=== PATIENT | female | born 1940 | race Caucasian/White ===

== ENCOUNTER 2019-02-22 02:30 | Inpatient (IN) | payer OTHER, MEDICAID ==
[2019-02-22] VITALS (7 sets, daily range): BP systolic 115–154
[~2019-02-22] VITALS: Ht 160 cm; Wt 39.5 kg
--- NOTE | 2019-02-22 02:31 | NUR ---
Patient to ER bed 6 to gown for evaluation. Side rails up.
--- NOTE | 2019-02-22 02:35 | NUR ---
Pt BIB BLS post fall. Pt reports to have fallen out of bed. C/O of head injury and L knee pain. Denies AOx3. Pt currently taking eloquis. Denies n/v/d or fever. No other complaints/injuries noted. Will cont. to monitor. Addendum: 02/22/19 at 0306 by [email or web address] Pt BIB BLS post fall. PT resides in [facility]. Pt reports to have fallen out of bed. C/O of head injury and L knee pain. Denies AOx3. Pt currently taking eloquis. Denies n/v/d or fever. No other complaints/injuries noted. Will cont. to monitor.
--- NOTE | 2019-02-22 02:36 | NUR ---
ER at bedside examining patient.
--- NOTE | 2019-02-22 03:01 | NUR ---
PT went to CT scan via Cynny, tolerated well. Will cont. to monitor.
[2019-02-22 03:12] LABS: BASOPHILS # (AUTO) 0.1 K/uL (0.0-0.2); EOSINOPHILS # (AUTO) 0.2 K/uL (0.0-0.4); EOSINOPHILS % (AUTO) 2.5 % (0.0-4.0); HEMATOCRIT 36.1 % (36-48); HEMOGLOBIN 12.1 g/dL (12.0-16.0); LYMPHOCYTES # (AUTO) 1.8 K/uL (1.0-5.5); LYMPHOCYTES % (AUTO) 22.8 % (20.5-51.5); MEAN CORPUSCULAR HEMOGLOBIN 27 pg (27-31); MEAN CORPUSCULAR HGB CONC 34 % (32-36); MEAN CORPUSCULAR VOLUME 80 fL (79.0-98.0); MONOCYTES # (AUTO) 0.6 K/uL (0.0-1.0); MONOCYTES % (AUTO) 8.2 % (1.7-9.3); NEUTROPHILS # (AUTO) 5.1 K/uL (1.8-7.7); NEUTROPHILS % (AUTO) 65.5 % (40.0-70.0); PLATELET COUNT (AUTO) 338 K/uL (130-430); RED BLOOD CELL COUNT(AUTO) 4.49 MIL/uL (4.2-6.2); RED CELL DISTRIBUTION WIDTH 17.3 % (9.0-15.0); WHITE BLOOD COUNT (AUTO) 7.8 K/uL (4.8-10.8)
[2019-02-22] MEDS ORDERED: NOR10 PO (03:18)
[2019-02-22] MEDS ORDERED: DIPH28.34 TP (03:18)
[2019-02-22] MEDS ORDERED: LOSA25TA3 PO (03:18)
[2019-02-22] MEDS ORDERED: POLY17PO4 PO (03:18)
[2019-02-22] MEDS ORDERED: MOM PO (03:18)
[2019-02-22] MEDS ORDERED: BISA10SU61 RC (03:18)
[2019-02-22] MEDS ORDERED: DOCU-144 PO (03:18)
[2019-02-22] MEDS ORDERED: ACET-2165 PO ×2 (03:18)
[2019-02-22] MEDS ORDERED: LIP40 PO (03:18)
[2019-02-22] MEDS ORDERED: FERR140T2 PO (03:18)
[2019-02-22] MEDS ORDERED: LEVO50TA8 PO (03:18)
[2019-02-22] MEDS ORDERED: OMEP40CA33 PO (03:18)
[2019-02-22] MEDS ORDERED: SENN8.6T19 PO (03:18)
[2019-02-22] MEDS ORDERED: FLEETMO RC (03:18)
[2019-02-22] MEDS ORDERED: IPRA3AMP9 INH (03:18)
[2019-02-22] MEDS ORDERED: ASPI-1155 PO (03:18)
[2019-02-22] MEDS ORDERED: GABA-531 PO (03:18)
[2019-02-22] MEDS ORDERED: ONDA4TAB5 PO (03:18)
[2019-02-22] MEDS ORDERED: ATRMDI INH (03:18)
[2019-02-22] MEDS ORDERED: APIX5TAB4 PO (03:18)
[2019-02-22] MEDS ORDERED: GABA-529 PO (03:18)
--- NOTE | 2019-02-22 03:19 | NUR ---
Medication reconciliation completed with information provided by [facility] [place]. Any prior medication reconciliation on file was reviewed and corrected.
--- NOTE | 2019-02-22 03:21 | NUR ---
Pt returned from CT scan.
[2019-02-22 03:25] LABS: CHLORIDE 101 mmol/L (98-107); SODIUM SERUM 133 mmol/L (136-145)
[2019-02-22 03:30] LABS: ALANINE AMINOTRANSFERASE 35 U/L (12-78); ALBUMIN 2.3 g/dL (3.4-4.8); ASPARTATE AMINOTRANSFERASE 34 U/L (10-37); PROTHROMBIN TIME 10.1 SECS (9.5-12.5)
[2019-02-22 03:35] LABS: ANION GAP 9 (5-15); CALCIUM 9.4 mg/dL (8.4-11.0); CREATININE 0.69 mg/dL (0.55-1.30); GLUCOSE 100 mg/dL (70-99); POTASSIUM 4.3 mmol/L (3.5-5.1); UREA NITROGEN, BLOOD 20 mg/dL (8-21)
[2019-02-22 03:42] LABS: TOTAL BILIRUBIN 0.3 mg/dL (0.0-1.0)
--- NOTE | 2019-02-22 04:30 | NUR ---
Pt asked for water, ER made aware. Pt drank a few sips of water without any issue.
[2019-02-22 04:37] LABS: BILIRUBIN,URINE NEGATIVE (NEGATIVE); BLOOD, URINE NEGATIVE (NEGATIVE); CLARITY/URINE CLEAR (CLEAR); COLOR,URINE YELLOW (YELLOW); GLUCOSE,URINE NEGATIVE (NEGATIVE); KETONES,URINE NEGATIVE (NEGATIVE); LEUKOCYTE ESTERASE ,URINE NEGATIVE (NEGATIVE); NITRITE, URINE NEGATIVE (NEGATIVE); PROTEIN URINE 2+ (NEGATIVE); UROBILINOGEN,URINE 0.2 (0.2-1.0)
[2019-02-22 04:41] LABS: BACTERIA,URINE RARE /HPF (None Seen); HYALINE CASTS, URINE 0-10 /LPF (None Seen); RBC,URINE 0-3 /HPF (0-3); WBC,URINE 0-3 /HPF (0-3)
--- NOTE | 2019-02-22 05:38 | NUR ---
Patient will be admitted to care of Dr. Segura. Admitted to Tele unit. Will go to room 113B. Belongings list completed. Summary report printed. Report will be given at bedside.
--- NOTE | 2019-02-22 06:01 | NUR ---
Transfer to Tele via ACLS protocol. Licensed nurse present. IV present no signs or symptoms of infiltration.
--- NOTE | 2019-02-22 06:01 | NUR ---
ADMISSION: The patient, CURT KUMAR, 78 y/o, F admitted by DR BILL , with the diagnosis of Syncope and Elevated Troponin to room 113 B , was given written information regarding hospital policies, unit procedures and contact persons. Addendum: 02/22/19 at 0602 by Chasidy Waters RN CORRECTION : TIME OF ARRIVAL WAS 0553 , PT WAS NOT ADMITTED TO THE FLOOR THAT TIME , LATE ENTRY
--- NOTE | 2019-02-22 06:01 | NUR ---
ADMISSION Pt admitted to Telemetry via gurney accompanied by ACLS ER staff. Pt alert/oriented to self, place. LAC 20ga saline lock present started by ER staff. No redness or swelling noted @ site. Left knee with small abrasion, open to air. Left area behind ear with hematoma.
--- NOTE | 2019-02-22 06:30 | NUR ---
VANESSA ERVIN BROUGHT IN THE ID BAND FOR PT , VERIFIED IT AT BEDSIDE WITH THE PT .
--- NOTE | 2019-02-22 07:35 | NUR ---
INITIAL NOTE RECEIVED PATIENT FROM CLINICAL SCIENTIST NURSE, PATIENT RESTING IN BED WITH EYES CLOSED, NO SIGNS OF DISTRESS NOTED, BREATHING EVEN AND UNLABORED, PATIENT HAS IV IN LEFT FOREARM, SALINE LOCK, CALL SERRATO WITHIN REACH, BED IN LOWEST POSITION, BED ALARM ON, FALL PRECAUTIONS IN PLACE, WILL CONTINUE TO MONITOR.
--- NOTE | 2019-02-22 08:54 | NUR ---
RN ROUNDS PATIENT CURRENTLY RESTING IN BED, WITH EYES CLOSED, NO SIGNS OF DISTRESS NOTED, BREATHING EVEN AND UNLABORED, NO SIGNS OF DISTRESS NOTED, CALL SERRATO WITHIN REACH, BED IN LOWEST POSITION, WILL CONTINUE TO MONITOR.
[2019-02-22] MEDS ORDERED: LEVOTHYROXINE SODIUM 0.05 MG TABLET PO ONE (09:30)
[2019-02-22] MEDS ORDERED: ONDANSETRON 4 MG ODT TAB PO SCH (09:30)
[2019-02-22] MEDS ORDERED: ATORVASTATIN 20 MG TABLET PO ONE (09:30)
[2019-02-22] MEDS ORDERED: APIXABAN 2.5 MG TABLET PO ONE (09:30)
[2019-02-22] MEDS ORDERED: ASPIRIN 81 MG TAB.CHEW PO ONE (09:30)
[2019-02-22] MEDS ORDERED: LOSARTAN POTASSIUM 25 MG TABLET PO ONE (09:30)
[2019-02-22] MEDS ORDERED: IPRATROPIUM/ALBUTEROL SULFATE 3 ML AMPUL.NEB (DUONEB) INH PRN (09:30)
[2019-02-22] MEDS ORDERED: amLODIPine BESYLATE 10 MG TABLET PO ONE (09:30)
[2019-02-22] MEDS ORDERED: MILK OF MAGNESIA 30 ML UDC PO PRN (09:30)
[2019-02-22] MEDS ORDERED: ACETAMINOPHEN 325 MG TABLET PO SCH (09:30)
[2019-02-22] MEDS ORDERED: PANTOPRAZOLE SODIUM 40 MG TAB PO ONE (09:30)
[2019-02-22] MEDS ORDERED: GABAPENTIN 100 MG CAPSULE PO ONE (09:30)
--- NOTE | 2019-02-22 09:37 | NUR ---
CONSULTATION PAGED/CALLED Reason for Consultation: ELEVATED TROP Person Who was Notified: SPOKE WITH ELDER FROM OFFICE . Consulting Physician: Taste Tester Specialty: CARDIO Ordering Physician:
--- NOTE | 2019-02-22 10:14 | NUR ---
RN ROUNDS PATIENT GIVEN MORNING MEDICATIONS, PATIENT EDUCATED ON POTENTIAL SIDE EFFECTS, TECH HERE TO START PATIENT 2D ECHO WELL, PATIENT INFORMED OF TEST. WILL CONTINUE TO MONITOR.
--- NOTE | 2019-02-22 10:27 | NUR ---
Nutrition Update Isaias Scale 15 noted. Pt admitted for syncope and elevated troponin. Diet: 2 gm Na BMI: 15.4 kg/m2 RD to follow per nutrition care standards.
--- NOTE | 2019-02-22 11:10 | NUR ---
DR. BILL INFORMED DR. BILL OF PATIENT'S COMPLIANTS OF PAIN IN LEFT LEG, DR. BILL ORDERED TO GIVE TYLENOL, PATIENT REFUSED TYLENOL, PATIENT STATED SHE DOES NOT WANT TO TAKE THAT FOR PAIN.
[2019-02-22] MEDS ORDERED: DIPHENHYDRAMINE HCL/ZINC ACET 28.3 GM CREAM.GM. TP PRN (12:45)
[2019-02-22] MEDS: IPRATROPIUM BROM 0.5 MG/2.5 ML VIAL.NEB (ATROVENT) INH SCH ×2 (13:00→19:00)
--- NOTE | 2019-02-22 13:02 | NUR ---
RN ROUNDS PATIENT CURRENTLY RESTING IN BED NO SIGNS OF DISTRESS NOTED, CALL SERRATO WITHIN REACH, BED IN LOWEST POSITION, WILL CONTINUE TO MONITOR.
--- NOTE | 2019-02-22 15:20 | NUR ---
RN ROUNDS PATIENT RESTING IN BED, PATIENT KEEPS STATING SHE WANTS TO GO BACK TO [facility], INFORMED PATIENT THAT WE ARE WAITING FOR THE DOCTORS TO DECIDE ABOUT DISCHARGE. WILL CONTINUE TO MONITOR.
--- NOTE | 2019-02-22 16:19 | NUR ---
RN ROUNDS PATIENT BEING SEEN BY PT, PATIENT IN STABLE CONDITION, WILL CONTINUE TO MONITOR.
[2019-02-22] MEDS: ACETAMINOPHEN 325 MG TABLET PO PRN (17:14)
--- NOTE | 2019-02-22 18:54 | NUR ---
CLOSING NOTE PATIENT IS STABLE CONDITION, ALL NEEDS MET, WILL ENDORSE PATIENT TO ASSISTANT PROFESSOR OF LIFE SCIENCES NURSE, PATIENT CURRENTLY RESTING IN BED, SON AT BEDSIDE, CALL SERRATO WITHIN REACH, BED IN LOWEST POSITION, SIDE RAILS UP, FALL PRECAUTIONS IN PLACE.
--- NOTE | 2019-02-22 19:37 | NUR ---
Initial Notes Received handoff report from offgoing nurse at the bedside. Patient is awake and alert, resting comfortably in bed. No SOB, no acute distress, no complaints of pain at this time. Bed is locked, in the lowest position, 2x side rails up, bed alarm is on. Call light is within reach. Encouraged patient to call for assistance. Will continue with plan of care.
[2019-02-22] MEDS: GABAPENTIN 100 MG CAPSULE PO SCH (20:48)
[2019-02-22] MEDS: APIXABAN 2.5 MG TABLET PO SCH (20:49)
[2019-02-22] MEDS ORDERED: SENNOSIDES 8.6 MG TABLET PO SCH (21:00)
[2019-02-22] MEDS ORDERED: GABAPENTIN 300 MG CAPSULE PO SCH (21:00)
--- NOTE | 2019-02-22 21:54 | NUR ---
INCONTINENCE CARE PROVIDED TO THE PATIENT NEEDED. PATIENT IS NOW CLEAN AND DRY, RESTING COMFORTABLY IN BED. ALSO PROVIDED WOUND CARE NEEDED AND PHOTOS TAKEN OF ALL WOUNDS AND ECCHYMOSIS.
--- NOTE | 2019-02-22 23:50 | NUR ---
Patient provided with sips as water per patient request. Now resting comfortably in bed. AOx1. No SOB, no acute distress, no complaints of pain at this time. Bed is locked, in the lowest position, 2x side rails up, bed alarm is on. Call light is within reach. Encouraged patient to call for assistance.
[2019-02-23 00:38] VITALS: BP_SYST 154
[2019-02-23] MEDS: ACETAMINOPHEN 325 MG TABLET PO PRN (01:39)
--- NOTE | 2019-02-23 01:39 | NUR ---
Patient is complaining of leg pain. Provided patient with Tylenol PRN per MD order, see eMAR for details. Will continue to monitor for pain management.
--- NOTE | 2019-02-23 02:14 | NUR ---
Patient resting comfortably in bed, eyes closed. Breathing even and unlabored with visible chest rise and fall noted. No SOB, no acute distress, no signs of pain or facial grimacing noted. Bed is locked, in the lowest position, 2x side rails up, bed alarm is on. Call light is within reach.
--- NOTE | 2019-02-23 04:00 | NUR ---
Provided patient with sips of water per patient request. Turned off the lights as well to promote rest per patient request.
--- NOTE | 2019-02-23 05:55 | NUR ---
Provided patient with warm blankets per patient request. Patient resting in bed, no sob, no acute distress, no complaints of pain. Call light within reach. Encouraged patient to call for assistance.
--- NOTE | 2019-02-23 06:24 | NUR ---
Closing Notes Patient is resting comfortably in bed, eyes closed, easily arousable to touch. Breathing even and unlabored with visible chest rise and fall noted. No SOB, no acute distress, no complaints of pain. IV site intact, dressing clean and dry, saline locked. Bed is locked, in the lowest position, 2x side rails up, bed alarm is on. Call light is within reach. Fall, safety precautions maintained. All needs have been met during this shift. Will endorse care to oncoming dayshift nurse.
[2019-02-23] MEDS ORDERED: PANTOPRAZOLE SODIUM 40 MG TAB PO SCH (07:00)
[2019-02-23] MEDS: IPRATROPIUM BROM 0.5 MG/2.5 ML VIAL.NEB (ATROVENT) INH SCH (07:00)
--- NOTE | 2019-02-23 07:41 | NUR ---
PT IN BED AOX1 PT ARGUMENTIVE removed blood pressure cuff from and was told dont ever do that again. unable to recieve blood pressure at this time. will try later. will hold bp meds until further assessment.
--- NOTE | 2019-02-23 07:43 | NUR ---
nop acute distress noted on room air monitoring ongoing,
[2019-02-23] MEDS: GABAPENTIN 100 MG CAPSULE PO SCH (08:28)
[2019-02-23] MEDS: APIXABAN 2.5 MG TABLET PO SCH (08:52)
[2019-02-23] MEDS ORDERED: ATORVASTATIN 20 MG TABLET PO SCH (09:00)
[2019-02-23] MEDS ORDERED: amLODIPine BESYLATE 10 MG TABLET PO SCH (09:00)
[2019-02-23] MEDS ORDERED: POLYETHYLENE GLYCOL 3350, 17 GM/ POWD.PACK PO SCH (09:00)
[2019-02-23] MEDS ORDERED: FERROUS SULFATE 325 MG TABLET.DR PO SCH (09:00)
[2019-02-23] MEDS ORDERED: BISACODYL 10 MG/SUPPOSITORY RC SCH (09:00)
[2019-02-23] MEDS ORDERED: DOCUSATE SODIUM 100 MG CAPSULE PO SCH (09:00)
[2019-02-23] MEDS ORDERED: LOSARTAN POTASSIUM 25 MG TABLET PO SCH (09:00)
[2019-02-23] MEDS ORDERED: LEVOTHYROXINE SODIUM 0.05 MG TABLET PO SCH (09:00)
[2019-02-23] MEDS ORDERED: ASPIRIN 81 MG TAB.CHEW PO SCH (09:00)
--- NOTE | 2019-02-23 10:31 | NUR ---
CONFIRMED WITH [facility] THAT PT IS GOING BACK TO [facility]. SPOKE TO CORTNEY
--- NOTE | 2019-02-23 10:32 | NUR ---
CALLED HCP CM PRODUCT BLENDING SUPERVISOR, OSMANY TO INFORMED THAT PT IS GOING BACK TO [facility]. I WAS GIVEN APPROVAL TO USE [facility] FOR TRANSPORT.
[2019-02-23 11:07] VITALS: BP_SYST 127
--- NOTE | 2019-02-23 11:38 | NUR ---
pt dc to [facility] pt voices no concerns unable to sign dc papers due to mental status no family at bedside. family notified of transfer
== END 2019-02-23 11:45 | DRG 640 ==
LOC: SED 02:30 → STU 05:39
PROVIDERS: ADMIT Internal Medicine Hospice and Palliative Medicine; ATTEND Internal Medicine Hospice and Palliative Medicine
DX: E86.0 Dehydration (principal); E43 Unspecified severe protein-calorie malnutrition; Z68.1 Body mass index [BMI] 19.9 or less, adult; S00.03XA Contusion of scalp, initial encounter; I73.9 Peripheral vascular disease, unspecified; I44.4 Left anterior fascicular block; E03.9 Hypothyroidism, unspecified; E78.5 Hyperlipidemia, unspecified; F03.90 Unspecified dementia, unspecified severity, without behavioral disturbance, psychotic disturbance, mood disturbance, and anxiety; G89.29 Other chronic pain; I11.9 Hypertensive heart disease without heart failure; I25.10 Atherosclerotic heart disease of native coronary artery without angina pectoris; J44.9 Chronic obstructive pulmonary disease, unspecified; J32.9 Chronic sinusitis, unspecified; M19.90 Unspecified osteoarthritis, unspecified site; M25.562 Pain in left knee; W06.XXXA Fall from bed, initial encounter; Y93.89 Activity, other specified; Y92.89 Other specified places as the place of occurrence of the external cause; Y99.8 Other external cause status; Z79.01 Long term (current) use of anticoagulants; Z79.82 Long term (current) use of aspirin; Z86.73 Personal history of transient ischemic attack (TIA), and cerebral infarction without residual deficits; Z90.710 Acquired absence of both cervix and uterus; Z90.49 Acquired absence of other specified parts of digestive tract
CPT/HCPCS: 36415; 70450-TC; 72170-TC; 73564; 80053; 81000-TC; 84484; 85025; 85610-TC; 85730-TC; 87081; 93005; 93306; 97110-GP; 99285; G0378